=== PATIENT | female | born 2005 | race Two or more races ===

== ENCOUNTER 2025-01-29 13:27 | Emergency (ER) | payer OTHER ==
[~2025-01-29] VITALS: Ht 152.4 cm; Wt 72.6 kg
[2025-01-29 14:32] LABS: PLATELET COUNT (AUTO) 326 K/uL (150-450); RED BLOOD CELL COUNT(AUTO) 4.75 MIL/uL (4.0-5.2); RED CELL DISTRIBUTION WIDTH 13.2 % (11.5-15.0); WHITE BLOOD COUNT (AUTO) 6.8 K/uL (4.3-11.0)
[2025-01-29 14:37] LABS: APPEARANCE,URINE CLEAR (CLEAR); BLOOD, URINE 3+ Ery/uL (NEGATIVE); LEUKOCYTE ESTERASE ,URINE NEGATIVE (NEGATIVE); NITRITE, URINE NEGATIVE (NEGATIVE); UGLUCOSE NEGATIVE (NEGATIVE)
[2025-01-29 14:44] LABS: CALCIUM, SERUM 8.8 mg/dL (8.5-10.1); CREATININE 0.8 mg/dL (0.6-1.3); SODIUM SERUM 140.0 mmol/L (136-145); UREA NITROGEN, BLOOD 9.0 mg/dL (7-18)
[2025-01-29 14:56] LABS: ADD URINE CULTURE NO; SQUAMOUS EPITHELIAL CELL,UR 0-2 /HPF (None Seen)
[2025-01-29 14:56] LABS: ASPARTATE AMINOTRANSFERASE 14.0 U/L (15-37); PREGNANCY TEST SERUM QUAN 0.0 mIU/mL (0-6); TOTAL PROTEIN, SERUM 7.7 g/dL (6.4-8.2)
[2025-01-29 15:47] VITALS: BP 142/70; TEMP 99.5; O2SAT 98
== END 2025-01-29 15:48 | disposition home or self-care (01) ==
LOC: ER 13:27
DX: N93.9 Abnormal uterine and vaginal bleeding, unspecified (principal); R10.2 Pelvic and perineal pain
CPT/HCPCS: 36415; 76856-TC; 80048-TC; 80076-TC; 81001; 84702-TC; 85025-TC